=== PATIENT | female | born 1950 | race African-American/Black ===

== ENCOUNTER 2022-04-25 07:08 | Day surgery (SDC) | payer MEDICARE, BC ==
[~2022-04-25] VITALS: Ht 177.8 cm; Wt 88.0 kg
[~2022-04-25 07:08] MED LIST: ATENOLOL50 MG PO; BAYER ASPIRIN E81 MG PO; CALTRATE PLS PO; COQ10200 MG PO; CRESTOR10 MG PO; DYAZIDE1 CAP PO; FOLIC ACID1 MG PO; LISINOPRIL10 MG PO; PROLIA60 MG/ML SC; ULTRAM50 MG OR; VITAMIN D32000 UNI2 PO
[2022-04-25 10:12] VITALS: BP 117/76
== END 2022-04-25 09:55 | disposition home or self-care (01) ==
LOC: ENDO 07:08
PROVIDERS: ATTEND Internal Medicine Gastroenterology
PROC: 0DBN8ZX Excision of Sigmoid Colon, Via Natural or Artificial Opening Endoscopic, Diagnostic (ICD-10-PCS; principal; 2022-04-25)
DX: Z12.11 Encounter for screening for malignant neoplasm of colon (principal); K63.5 Polyp of colon; K57.30 Diverticulosis of large intestine without perforation or abscess without bleeding; K64.8 Other hemorrhoids; I10 Essential (primary) hypertension; E78.5 Hyperlipidemia, unspecified; Q61.2 Polycystic kidney, adult type

== ENCOUNTER 2022-09-06 13:40 | Emergency (ER) | payer MEDICARE, BC ==
[~2022-09-06] VITALS: Ht 177.8 cm; Wt 86.5 kg
[2022-09-06] MEDS ORDERED: PAXLOVID PO (14:58)
[2022-09-06 15:09] VITALS: BP 121/76
== END 2022-09-06 15:32 | disposition home or self-care (01) ==
LOC: ED 13:40
DX: U07.1 COVID-19 (principal); R09.81 Nasal congestion; R05.9 Cough, unspecified; R52 Pain, unspecified; J02.9 Acute pharyngitis, unspecified; H92.09 Otalgia, unspecified ear; R11.0 Nausea; R50.9 Fever, unspecified; I10 Essential (primary) hypertension

== ENCOUNTER 2024-03-31 13:20 | Emergency (ER) | payer MEDICARE, BC ==
[2024-03-31] VITALS (7 sets, daily range): BP systolic 120–162; BP diastolic 68–83
[~2024-03-31] VITALS: Ht 177.8 cm; Wt 85.3 kg
[~2024-03-31 13:20] MED LIST changes: +PAXLOVID PO
[2024-03-31] MEDS ORDERED: PAXLOVID PO (14:21)
== END 2024-03-31 14:47 | disposition home or self-care (01) ==
LOC: ED 13:20
DX: U07.1 COVID-19 (principal); R05.9 Cough, unspecified; J20.9 Acute bronchitis, unspecified; R52 Pain, unspecified; I10 Essential (primary) hypertension